=== PATIENT | female | born 1995 | race Caucasian/White ===

== ENCOUNTER 2024-10-10 08:16 | Emergency (ER) | payer OTHER, SELFPAY ==
[2024-10-10 08:28] VITALS: BP 132/79; TEMP 36.8
--- NOTE | 2024-10-10 08:43 | ED_ITS ---
HPI - 2 General: Chief complaint: Vaginal Bleeding Stated complaint: 6 wks , bleeding Time Seen by Provider: 10/10/24 08:20 History of Present Illness: 29-year-old female presents emergency ro om with vaginal spotting pelvic pain and cramping. Patient reports she is approximately 6 weeks . Later that is a patient for me she to had a hCG done earlier this week at her doctor's office was around 720s. Associated symptoms: Deny abdominal pain or dysuria Related Data Allergies Allergy/AdvReac Type Severity Reaction Status Date / Time No Known Allergies Allergy Verified 10/10/24 08:33 Review of Systems 2 Const: Denies: fever(s) or chills Card: Denies: chest pain Resp: Denies: dyspnea GI: Denies: abdominal pain : Reports: vaginal bleeding; Denies: dysuria, urinary frequency or urinary urgency Musc: Denies: neck pain or back pain Skin/Breast: Denies: rash Physical Exam 2 Const: COMMON NORMALS: no acute distress GENERAL APPEARANCE: cooperative and comfortable ORIENTATION/CONSCIOUSNESS: Yes awake, Yes oriented to person, Yes oriented to place and Yes oriented to time HENMT: COMMON NORMALS: normocephalic, atraumatic and hearing grossly normal bilaterally HEAD & SCALP: normocephalic and atraumatic Resp: COMMON NORMALS: normal respiratory effort, No retractions, No use of accessory muscles and clear to auscultation bilaterally AUSCULTATION: clear to auscultation bilaterally Cardio: COMMON NORMALS: regular rate, regular rhythm and No murmurs present (Cardio) RATE: regular rate RHYTHM: regular rhythm GI: COMMON NORMALS: Soft to palpation and No hepatosplenomegaly present A USCULTATION: Yes normoactive bowel sounds PALPATION: Yes Soft to palpation, No Tenderness to palpation present (GI), No Guarding due to palpation present (GI) and Yes No hepatosplenomegaly present Extremity: COMMON NORMALS: normal to inspection, capillary refill normal, no clubbing, cyanosis or edema, no calf tenderness and no pedal edema Neuro: SENSORIUM/ORIENTATION: Yes oriented to person, Yes oriented to place and Yes oriented to time Skin: COMMON NORMALS: no rashes or lesions noted GENERAL SKIN EXAM: no rashes or lesions noted Course 2 Vital Signs: Vital signs: Vital Signs Temperature 98.2 F 10/10/24 08:28 Pulse Rate 91 01/04/25 10:01 Blood Pressure 137/86 10/10/24 10:01 Pulse Oximetry 91 10/10/24 10:01 MDM - OB/Uterine Contractions Medical Decision Making Beta-hCG has decreased this down to 640 now. Will discharge patient home recommend that she follow-up with her primary care or her [employer] in 3 days to have a repeat troponin. Medical Records I reviewed the patient's medical records. Lab Data I reviewed the patient's lab results. 10/10/24 08:46 10/10/24 08:46 Laboratory Results WBC 7.51 10^3/uL (3.29-11.43) 10/10/24 08:46 RBC 5.10 10^6/uL (3.85-5.65) 10/10/24 08:46 Hgb 14.10 g/dL (11.27-16.99) 10/10/24 08:46 Hct 42.5 % (36-47) 10/10/24 08:46 MCV 83.3 fl (85-98) L 10/10/24 08:46 MCH 27.6 pg (27-33) 10/10/24 08:46 MCHC 33.2 g/dL (30-55) 10/10/24 08:46 RDW 11.9 % (12.1-15.1) L 10/10/24 08:46 Plt Count 302 10^3/cmm (157-399) 10/10/24 08:46 MPV 10.1 fL (7.4-10.4) 10/10/24 08:46 Neut % (Auto) 70.4 % 10/10/24 08:46 Lymph % (Auto) 21.3 % 10/10/24 08:46 [place] % (Auto) 5.3 % 10/10/24 08:46 Eos % (Auto) 1.9 % 10/10/24 08:46 Baso % (Auto) 0.7 % 10/10/24 08:46 Neut # (Auto) 5.29 10^3/uL (1.8-7.7) 10/10/24 08:46 Lymph # (Auto) 1.6 10^3/uL (0.8-4.8) 10/10/24 08:46 [place] # (Auto) 0.4 10^3/uL (0.2-0.9) 10/10/24 08:46 Eos # (Auto) 0.1 10^3/uL (0.0-0.8) 10/10/24 08:46 Baso # (Auto) 0.1 10^3/uL (0.0-0.1) 10/10/24 08:46 Nucleated RBC % (auto) 0 % 10/10/24 08:46 Nucleated RBCs # 0.0 /100WBC 10/10/24 08:46 Sodium 135 mmol/L (136-145) L 10/10/24 08:46 Potassium 4.0 mmol/L (3.5-5.1) 10/10/24 08:46 Chloride 99 mmol/L (98-107) 10/10/24 08:46 Carbon Dioxide 23 mmol/L (22-29) 10/10/24 08:46 Anion Gap 17.0 (5-19) 10/10/24 08:46 BUN 8 mg/dL (6-20) 10/10/24 08:46 Creatinine 0.6 mg/dL (0.5-0.9) 10/10/24 08:46 GFR Calculation 116.6 mL/min (90-130) 10/10/24 08:46 Glucose 96 mg/dL (65-115) 10/10/24 08:46 Calculated Osmolality 278 mOsm/kg (285-295) L 10/10/24 08:46 Calcium 9.3 mg/dL (8.5-10.5) 10/10/24 08:46 Total Bilirubin 0.4 mg/dL (0.15-1.2) 10/10/24 08:46 AST 14 U/L (0-32) 10/10/24 08:46 ALT 14 U/L (0-33) 10/10/24 08:46 Alkaline Phosphatase 55 U/L (35-105) 10/10/24 08:46 Total Protein 7.3 g/dL (6.6-8.7) 10/10/24 08:46 Albumin 4.2 g/dL (3.5-5.2) 10/10/24 08:46 Globulin 3.1 g/dL (1.3-4.6) 10/10/24 08:46 Ser , Semi-Qnt 646.90 mIU/mL 10/10/24 08:46 Urine Color Yellow (Yellow) 10/10/24 09:05 Urine Appearance Clear (CLEAR) 10/10/24 09:05 Urine pH 7.0 (5-7) 10/10/24 09:05 Ur Specific [place] 1.016 (1.005-1.030) 10/10/24 09:05 Urine Protein Negative (Negative) 10/10/24 09:05 Urine Glucose (UA) Negative (Normal) 10/10/24 09:05 Urine Ketones Negative (Negative) 10/10/24 09:05 Urine Blood Negative (Negative) 10/10/24 09:05 Urine Nitrate Negative (Negative) 10/10/24 09:05 Urine Bilirubin Negative (Negative) 10/10/24 09:05 Urine Urobilinogen 0.2 mg/dL (Negative) 10/10/24 09:05 Ur Leukocyte Esterase Negative (Negative) 10/10/24 09:05 Urine RBC 0-2 /hpf (0-2) 10/10/24 09:05 Urine WBC 0-5 /hpf (0-5) 10/10/24 09:05 Ur Squamous Epith Cells 0-5 /hpf (0-5) 10/10/24 09:05 Amorphous Sediment Not Reportable 10/10/24 09:05 Urine Bacteria None seen /hpf (NONE) 10/10/24 09:05 Hyaline Casts 0-4 /lpf H 10/10/24 09:05 Rho(D) Type Rh positive 10/10/24 08:46 All radiology interpretation(s) finalized by discharge Discharge Plan Discharge Patient Disposition: Home Clinical Impression: Threatened miscarriage in early Condition: Stable Discharge Orders: Discharge ED (Routine); Ordered 10/10/24 Ordered By: Vega Booth Patient Instructions: Threatened Miscarriage (ED), Opioid Safety, Pain Management Activity Restrictions/Additional Instructions: Thank you for choosing [facility] for your healthcare needs today. It is very important that you follow up as instructed or that you return to the Emergency Department should you have concerns or if your condition changes or worsens in any way. You were seen in the emergency room with complaints of vaginal bleeding. Your beta-hCG was 646 which is lower than the reported beta-hCG you had earlier this week at your doctor's office. Less than 1500 ultrasound is not able to detect. Given the fact that you beta-hCG is trending down it is suspicious for possible miscarriage. Contact your OB doctor for repeat beta-hCG l in approximately 3 days. Coding Level of Care Code ED [employer] Attendant for Valentina Corley
[2024-10-10 08:55] LABS: Basophils # 0.1 10^3/uL (0.0-0.1); Basophils % 0.7 %; Eosinophils # 0.1 10^3/uL (0.0-0.8); Eosinophils % 1.9 %; Hematocrit 42.5 % (36-47); Lymphocytes # 1.6 10^3/uL (0.8-4.8); Lymphocytes % 21.3 %; Mean Corpuscular HGB Conc 33.2 g/dL (30-55); Mean Corpuscular Hemoglobin 27.6 pg (27-33); Mean Corpuscular Volume 83.3 fl (85-98); Mean Platelet Volume 10.1 fL (7.4-10.4); Monocytes # 0.4 10^3/uL (0.2-0.9); Monocytes % 5.3 %; Neutrophils # 5.29 10^3/uL (1.8-7.7); Neutrophils % 70.4 %; Nucleated Red Blood Cells % 0 %; Platelet Count 302 10^3/cmm (157-399); Red Cell Distribution Width 11.9 % (12.1-15.1); White Blood Count 7.51 10^3/uL (3.29-11.43)
[2024-10-10 09:02] VITALS: BP 141/85; PULSE 93; O2SAT 100
[2024-10-10 09:12] LABS: Bilirubin Urine Negative (Negative); Blood Urine Negative (Negative); Glucose Urine UA Negative (Normal); Ketones Urine Negative (Negative); Leukocyte Esterase Urine Negative (Negative); Nitrate Urine Negative (Negative); Protein Urine Negative (Negative); Specific Gravity, Urine 1.016 (1.005-1.030); Urine Appearance Clear (CLEAR); Urine Color Yellow (Yellow); Urobilinogen Urine 0.2 mg/dL (Negative)
[2024-10-10 09:17] LABS: Add Urine Microscopic? YES; Bacteria Urine None Seen /hpf; Hyaline Casts Urine 0-4 /lpf; RBC Urine 0-2 /hpf (0-2); Squamous Epithelial Cell Urine 0-5 /hpf (0-5); WBC Urine 0-5 /hpf (0-5)
[2024-10-10 09:25] LABS: Blood Urea Nitrogen 8 mg/dL (6-20); Carbon Dioxide 23 mmol/L (22-29); Chloride 99 mmol/L (98-107); Glomerular Filtration Rate 116.6 mL/min (90-130); Glucose 96 mg/dL (65-115); Osmolality Calculated 278 mOsm/kg (285-295); Sodium 135 mmol/L (136-145)
[2024-10-10 09:26] LABS: Alanine Aminotransferase 14 U/L (0-33); Albumin Level 4.2 g/dL (3.5-5.2); Alkaline Phosphatase 55 U/L (35-105); Aspartate Amino Transferase 14 U/L (0-32); Calcium 9.3 mg/dL (8.5-10.5); Globulin 3.1 g/dL (1.3-4.6); Total Bilirubin 0.4 mg/dL (0.15-1.2); Total Protein 7.3 g/dL (6.6-8.7)
[2024-10-10 10:01] VITALS: BP 137/86; PULSE 91; O2SAT 91
== END 2024-10-10 10:03 | disposition home or self-care (01) ==
PROVIDERS: Emergency Provider Family Medicine
DX: O20.0 Threatened abortion (principal); Z3A.00 Weeks of gestation of pregnancy not specified
CPT/HCPCS: 36415; 80053; 81001; 84702; 85025; 99283